=== PATIENT | female | born 1990 | race Two or more races ===

== ENCOUNTER 2025-05-25 14:48 | Emergency (ER) | payer BC ==
[~2025-05-25] VITALS: Ht 160 cm; Wt 51.3 kg
[2025-05-25 15:00] VITALS: TEMP 98.2
[2025-05-25] MEDS ORDERED: FAMOTIDINE/PF INJ 20 MG/2 ML VIAL IV ONE (15:44)
[2025-05-25] MEDS ORDERED: ONDANSETRON HCL/PF 4 MG/2 ML VIAL ONE (15:44)
[2025-05-25] MEDS: IV NS 0.9% 1,000 ML BAG IV ONE (16:00)
[2025-05-25] MEDS: ONDANSETRON HCL/PF 4 MG/2 ML VIAL IVP ONE (16:00)
[2025-05-25] MEDS: FAMOTIDINE/PF INJ 20 MG/2 ML VIAL IV ONE (16:05)
[2025-05-25] MEDS ORDERED: PRED20TA PO (16:30)
[2025-05-25 16:44] VITALS: BP 110/62; O2SAT 99
== END 2025-05-25 16:43 | disposition home or self-care (01) ==
LOC: ER 14:55
DX: T78.40XA Allergy, unspecified, initial encounter (principal); T78.1XXA Other adverse food reactions, not elsewhere classified, initial encounter; Y92.511 Restaurant or cafe as the place of occurrence of the external cause
CPT/HCPCS: 99284; 96374; 96375; J2919; J1308; J2405; J7030